=== PATIENT | female | born 1935 | race Caucasian/White ===

== ENCOUNTER 2020-12-19 15:36 | Inpatient (IN) | payer BC, OTHER ==
[2020-12-19] MEDS ORDERED: LACTATED RINGERS SOLUTION 1000 ML INFUS.BAG IV ONE (17:30)
[2020-12-19 17:47] VITALS: BMI 25.7
[2020-12-19] MEDS ORDERED: SODIUM CHLORIDE 0.9% 500 ML INFUS.BAG IV ONE (18:55)
[2020-12-19 19:07] LABS: BASO % 0.2 % (0-2.0); EOS % 0.4 % (0-4.5); HEMATOCRIT 36.6 % (32.4-45.2); HEMOGLOBIN 12.3 GM/dL (10.7-15.3); LYMPH % 12.9 % (8-40); MCH 28.5 pg (25.7-33.7); MCHC 33.5 g/dl (32.0-36.0); MEAN PLT VOLUME 8.3 fl (7.5-11.1); MONO % 4.3 % (3.8-10.2); NEUT % 82.2 % (42.8-82.8); PLATELET COUNT 281 K/MM3 (134-434); RDW 14.1 % (11.6-15.6); WHITE BLOOD COUNT 10.7 K/mm3 (4.0-10.0)
[2020-12-19 19:31] LABS: CHLORIDE 109 mmol/L (98-107); SODIUM 140 mmol/L (136-145)
[2020-12-19 19:32] LABS: CALCIUM 9.2 mg/dL (8.5-10.1)
[2020-12-19 19:33] LABS: ALBUMIN 3.8 g/dl (3.4-5.0); ANION GAP 7 MMOL/L (8-16); BLOOD UREA NITROGEN 33.3 mg/dL (7-18); CO2 24 mmol/L (21-32); GLUCOSE,RANDOM 131 mg/dL (74-106)
[2020-12-19 19:36] LABS: CREATININE 1.5 mg/dL (0.55-1.3); SGOT/AST 23 U/L (15-37); SGPT/ALT 24 U/L (13-61)
[2020-12-19 19:37] LABS: BILIRUBIN,TOTAL 0.3 mg/dL (0.2-1); TOT PROT 6.6 g/dl (6.4-8.2)
[2020-12-19 19:38] LABS: ALK PHOS 129 U/L (45-117)
[2020-12-20 01:19] LABS: URINE APPEARANCE CLEAR; URINE BILIRUBIN NEGATIVE (NEGATIVE); URINE COLOR YELLOW; URINE GLUCOSE (UA) NEGATIVE (NEGATIVE); URINE KETONE NEGATIVE (NEGATIVE); URINE LEUK ESTERASE NEGATIVE (NEGATIVE); URINE NITRITE NEGATIVE (NEGATIVE); URINE PROTEIN NEGATIVE (NEGATIVE); URINE UROBILINOGEN 0.2 mg/dL (0.2-1.0)
[2020-12-20] MEDS ORDERED: SODIUM CHLORIDE 1,000 ML IV SCH (02:45)
[2020-12-20] MEDS ORDERED: HEPARIN NA (PORCINE) 5,000 UNITS/ML 1ML VIAL ONE ×2 (05:52→14:08)
[2020-12-20] MEDS: HEPARIN NA (PORCINE) 5,000 UNITS/ML 1ML VIAL SQ SCH ×3 (05:53→22:50)
[2020-12-20 07:57] LABS: BASO % 0.3 % (0-2.0); EOS % 1.3 % (0-4.5); HEMATOCRIT 33.8 % (32.4-45.2); HEMOGLOBIN 11.5 GM/dL (10.7-15.3); LYMPH % 24.3 % (8-40); MCH 28.9 pg (25.7-33.7); MCHC 34.1 g/dl (32.0-36.0); MEAN CELL VOLUME 84.9 fl (80-96); MEAN PLT VOLUME 8.3 fl (7.5-11.1); MONO % 8.1 % (3.8-10.2); PLATELET COUNT 270 K/MM3 (134-434); RBC 3.98 M/mm3 (3.60-5.2); RDW 13.7 % (11.6-15.6); WHITE BLOOD COUNT 8.4 K/mm3 (4.0-10.0)
[2020-12-20 08:14] LABS: ALBUMIN 3.6 g/dl (3.4-5.0); CALCIUM 9.2 mg/dL (8.5-10.1)
[2020-12-20 08:15] LABS: BLOOD UREA NITROGEN 26.8 mg/dL (7-18)
[2020-12-20 08:16] LABS: MAGNESIUM 1.7 mg/dL (1.8-2.4)
[2020-12-20 08:17] LABS: CREATININE 1.2 mg/dL (0.55-1.3)
[2020-12-20 08:18] LABS: BILIRUBIN,TOTAL 0.4 mg/dL (0.2-1); TOT PROT 6.3 g/dl (6.4-8.2)
[2020-12-20] MEDS ORDERED: LISINOPRIL 5 MG TABLET PO ONE (14:45)
[2020-12-20] MEDS ORDERED: LISINOPRIL 5 MG TABLET ONE (18:07)
[2020-12-20] MEDS: TRIAMTERENE AND HCTZ - 37.5 MG/25 MG CAPSULE PO SCH (18:30)
[2020-12-21] MEDS: HEPARIN NA (PORCINE) 5,000 UNITS/ML 1ML VIAL SQ SCH ×3 (05:58→21:49)
[2020-12-21 08:10] LABS: BASO % 0.5 % (0-2.0); EOS % 0.5 % (0-4.5); HEMATOCRIT 35.6 % (32.4-45.2); HEMOGLOBIN 12.2 GM/dL (10.7-15.3); LYMPH % 14.6 % (8-40); MCH 29.2 pg (25.7-33.7); MCHC 34.2 g/dl (32.0-36.0); MEAN CELL VOLUME 85.2 fl (80-96); MEAN PLT VOLUME 8.2 fl (7.5-11.1); MONO % 5.9 % (3.8-10.2); NEUT % 78.5 % (42.8-82.8); PLATELET COUNT 262 K/MM3 (134-434); RBC 4.17 M/mm3 (3.60-5.2)
[2020-12-21 08:29] LABS: ALBUMIN 3.6 g/dl (3.4-5.0); BLOOD UREA NITROGEN 23.6 mg/dL (7-18); CALCIUM 9.4 mg/dL (8.5-10.1); MAGNESIUM 1.6 mg/dL (1.8-2.4)
[2020-12-21 08:31] LABS: CREATININE 1.2 mg/dL (0.55-1.3)
[2020-12-21 08:33] LABS: BILIRUBIN,TOTAL 0.6 mg/dL (0.2-1); TOT PROT 6.2 g/dl (6.4-8.2)
[2020-12-21] MEDS: LISINOPRIL 5 MG TABLET PO SCH (09:47)
[2020-12-21] MEDS: TRIAMTERENE AND HCTZ - 37.5 MG/25 MG CAPSULE PO SCH (11:22)
[2020-12-21] MEDS: MAGNESIUM OXIDE 400 MG TABLET (FP) PO SCH (21:49)
[2020-12-22] MEDS: HEPARIN NA (PORCINE) 5,000 UNITS/ML 1ML VIAL SQ SCH ×3 (06:39→21:23)
[2020-12-22 07:14] LABS: BASO % 0.4 % (0-2.0); EOS % 0.6 % (0-4.5); HEMATOCRIT 38.5 % (32.4-45.2); LYMPH % 24.6 % (8-40); MCH 29.1 pg (25.7-33.7); MCHC 33.7 g/dl (32.0-36.0); MEAN CELL VOLUME 86.4 fl (80-96); MEAN PLT VOLUME 7.9 fl (7.5-11.1); MONO % 7.1 % (3.8-10.2); NEUT % 67.3 % (42.8-82.8); PLATELET COUNT 293 K/MM3 (134-434); RBC 4.46 M/mm3 (3.60-5.2); RDW 14.2 % (11.6-15.6); WHITE BLOOD COUNT 11.9 K/mm3 (4.0-10.0)
[2020-12-22 07:27] LABS: CALCIUM 9.9 mg/dL (8.5-10.1)
[2020-12-22 07:29] LABS: ALBUMIN 3.8 g/dl (3.4-5.0); BLOOD UREA NITROGEN 31.6 mg/dL (7-18); MAGNESIUM 1.7 mg/dL (1.8-2.4)
[2020-12-22 07:32] LABS: CREATININE 1.5 mg/dL (0.55-1.3)
[2020-12-22 07:33] LABS: BILIRUBIN,TOTAL 0.7 mg/dL (0.2-1)
[2020-12-22 07:34] LABS: TOT PROT 6.7 g/dl (6.4-8.2)
[2020-12-22] MEDS: MAGNESIUM OXIDE 400 MG TABLET (FP) PO SCH ×2 (09:59→21:23)
[2020-12-22] MEDS: LISINOPRIL 5 MG TABLET PO SCH (09:59)
[2020-12-22] MEDS: TRIAMTERENE AND HCTZ - 37.5 MG/25 MG CAPSULE PO SCH (10:00)
[2020-12-22] MEDS: BACITRACIN 15 GM TUBE TOPICAL OINTMENT TP SCH (21:23)
[2020-12-22 23:25] LABS: EPI CELLS 7 /uL (0-25.1); HYALINE CASTS 1 /uL (0-3.1); URINE APPEARANCE CLEAR; URINE BACTERIA 189 /uL (0-1359); URINE BILIRUBIN NEGATIVE (NEGATIVE); URINE COLOR YELLOW; URINE GLUCOSE (UA) NEGATIVE (NEGATIVE); URINE KETONE NEGATIVE (NEGATIVE); URINE LEUK ESTERASE 2+ (NEGATIVE); URINE NITRITE NEGATIVE (NEGATIVE); URINE PROTEIN TRACE (NEGATIVE); URINE RBC 18 /uL (0-23.9); URINE UROBILINOGEN 0.2 mg/dL (0.2-1.0); URINE WBC 290 /uL (0-25.8)
[2020-12-23] MEDS: HEPARIN NA (PORCINE) 5,000 UNITS/ML 1ML VIAL SQ SCH ×3 (06:20→22:43)
[2020-12-23 07:44] LABS: BASO % 0.6 % (0-2.0); EOS % 3.3 % (0-4.5); HEMATOCRIT 36.2 % (32.4-45.2); HEMOGLOBIN 12.4 GM/dL (10.7-15.3); LYMPH % 22.5 % (8-40); MCH 29.1 pg (25.7-33.7); MCHC 34.2 g/dl (32.0-36.0); MEAN CELL VOLUME 84.9 fl (80-96); MEAN PLT VOLUME 8.5 fl (7.5-11.1); MONO % 7.9 % (3.8-10.2); NEUT % 65.7 % (42.8-82.8); PLATELET COUNT 266 K/MM3 (134-434); RBC 4.26 M/mm3 (3.60-5.2); WHITE BLOOD COUNT 8.7 K/mm3 (4.0-10.0)
[2020-12-23 08:09] LABS: ALBUMIN 3.3 g/dl (3.4-5.0); BLOOD UREA NITROGEN 31.9 mg/dL (7-18); MAGNESIUM 1.8 mg/dL (1.8-2.4)
[2020-12-23 08:10] LABS: CALCIUM 9.5 mg/dL (8.5-10.1)
[2020-12-23 08:11] LABS: CREATININE 1.2 mg/dL (0.55-1.3)
[2020-12-23 08:13] LABS: BILIRUBIN,TOTAL 0.6 mg/dL (0.2-1); TOT PROT 6.1 g/dl (6.4-8.2)
[2020-12-23] MEDS: LISINOPRIL 10 MG TABLET PO SCH (09:31)
[2020-12-23] MEDS: BACITRACIN 15 GM TUBE TOPICAL OINTMENT TP SCH (09:31)
[2020-12-23] MEDS: MAGNESIUM OXIDE 400 MG TABLET (FP) PO SCH ×2 (09:31→22:43)
[2020-12-23] MEDS ORDERED: cefTRIAXone SODIUM 1 GM VIAL ONE (16:39)
[2020-12-23] MEDS: CEFTRIAXONE 1 GM in DEXTROSE 5%-WATER - 50 ML IVPB SCH (16:47)
[2020-12-23] MEDS: NYSTATIN 100,000 UNIT/GM TOPICAL CREAM 15 GM TUBE TP SCH (22:44)
[2020-12-24] MEDS: HEPARIN NA (PORCINE) 5,000 UNITS/ML 1ML VIAL SQ SCH ×3 (06:20→22:31)
[2020-12-24 08:21] LABS: BASO % 0.6 % (0-2.0); EOS % 4.5 % (0-4.5); HEMATOCRIT 35.3 % (32.4-45.2); HEMOGLOBIN 11.9 GM/dL (10.7-15.3); LYMPH % 23.1 % (8-40); MCH 28.6 pg (25.7-33.7); MCHC 33.7 g/dl (32.0-36.0); MEAN PLT VOLUME 8.6 fl (7.5-11.1); MONO % 7.7 % (3.8-10.2); NEUT % 64.1 % (42.8-82.8); PLATELET COUNT 287 K/MM3 (134-434); RBC 4.15 M/mm3 (3.60-5.2); RDW 14.1 % (11.6-15.6); WHITE BLOOD COUNT 8.5 K/mm3 (4.0-10.0)
[2020-12-24 09:04] LABS: ALBUMIN 3.2 g/dl (3.4-5.0); BLOOD UREA NITROGEN 38.4 mg/dL (7-18); CALCIUM 9.9 mg/dL (8.5-10.1)
[2020-12-24 09:05] LABS: BILIRUBIN,TOTAL 0.6 mg/dL (0.2-1)
[2020-12-24 09:06] LABS: CREATININE 1.4 mg/dL (0.55-1.3)
[2020-12-24 09:11] LABS: TOT PROT 6.1 g/dl (6.4-8.2)
[2020-12-24] MEDS ORDERED: DEXTROSE 5%-WATER - 50 ML IVPB ONE (11:09)
[2020-12-24] MEDS ORDERED: cefTRIAXone SODIUM 1 GM VIAL ONE (11:09)
[2020-12-24] MEDS: NYSTATIN 100,000 UNIT/GM TOPICAL CREAM 15 GM TUBE TP SCH ×2 (11:17→22:32)
[2020-12-24] MEDS: BACITRACIN 15 GM TUBE TOPICAL OINTMENT TP SCH ×2 (11:17→22:31)
[2020-12-24] MEDS: MAGNESIUM OXIDE 400 MG TABLET (FP) PO SCH ×2 (11:17→22:31)
[2020-12-24] MEDS: LISINOPRIL 10 MG TABLET PO SCH (11:18)
[2020-12-24] MEDS: CEFTRIAXONE 1 GM in DEXTROSE 5%-WATER - 50 ML IVPB SCH (11:18)
[2020-12-25] MEDS: HEPARIN NA (PORCINE) 5,000 UNITS/ML 1ML VIAL SQ SCH ×3 (05:54→22:17)
[2020-12-25 07:32] LABS: BASO % 0.5 % (0-2.0); HEMATOCRIT 34.4 % (32.4-45.2); HEMOGLOBIN 11.7 GM/dL (10.7-15.3); LYMPH % 20.6 % (8-40); MCH 28.9 pg (25.7-33.7); MEAN PLT VOLUME 8.6 fl (7.5-11.1); MONO % 7.4 % (3.8-10.2); NEUT % 65.5 % (42.8-82.8); PLATELET COUNT 272 K/MM3 (134-434); RBC 4.05 M/mm3 (3.60-5.2); RDW 13.9 % (11.6-15.6); WHITE BLOOD COUNT 8.7 K/mm3 (4.0-10.0)
[2020-12-25 07:40] LABS: ALBUMIN 3.1 g/dl (3.4-5.0); BLOOD UREA NITROGEN 36.4 mg/dL (7-18); MAGNESIUM 1.9 mg/dL (1.8-2.4)
[2020-12-25 07:43] LABS: CREATININE 1.3 mg/dL (0.55-1.3)
[2020-12-25 07:45] LABS: BILIRUBIN,TOTAL 0.4 mg/dL (0.2-1); TOT PROT 6.1 g/dl (6.4-8.2)
[2020-12-25] MEDS: MAGNESIUM OXIDE 400 MG TABLET (FP) PO SCH ×2 (09:58→22:17)
[2020-12-25] MEDS: BACITRACIN 15 GM TUBE TOPICAL OINTMENT TP SCH ×2 (09:58→22:17)
[2020-12-25] MEDS: NYSTATIN 100,000 UNIT/GM TOPICAL CREAM 15 GM TUBE TP SCH ×2 (09:58→22:17)
[2020-12-25] MEDS: LISINOPRIL 10 MG TABLET PO SCH (09:58)
[2020-12-25] MEDS ORDERED: DEXTROSE 5%-WATER - 50 ML IVPB ONE (10:02)
[2020-12-25] MEDS ORDERED: cefTRIAXone SODIUM 1 GM VIAL ONE (10:02)
[2020-12-25] MEDS: CEFTRIAXONE 1 GM in DEXTROSE 5%-WATER - 50 ML IVPB SCH (10:03)
[2020-12-26] MEDS: HEPARIN NA (PORCINE) 5,000 UNITS/ML 1ML VIAL SQ SCH ×3 (05:48→22:12)
[2020-12-26 07:27] LABS: BASO % 0.4 % (0-2.0); EOS % 7.3 % (0-4.5); HEMATOCRIT 36.1 % (32.4-45.2); HEMOGLOBIN 11.9 GM/dL (10.7-15.3); LYMPH % 19.2 % (8-40); MCH 28.5 pg (25.7-33.7); MEAN CELL VOLUME 86.4 fl (80-96); MEAN PLT VOLUME 8.5 fl (7.5-11.1); MONO % 7.5 % (3.8-10.2); NEUT % 65.6 % (42.8-82.8); PLATELET COUNT 270 K/MM3 (134-434); RBC 4.18 M/mm3 (3.60-5.2); WHITE BLOOD COUNT 8.7 K/mm3 (4.0-10.0)
[2020-12-26 07:56] LABS: CALCIUM 9.3 mg/dL (8.5-10.1)
[2020-12-26 07:57] LABS: ALBUMIN 3.3 g/dl (3.4-5.0); BLOOD UREA NITROGEN 35.1 mg/dL (7-18)
[2020-12-26 08:00] LABS: CREATININE 1.3 mg/dL (0.55-1.3)
[2020-12-26 08:01] LABS: BILIRUBIN,TOTAL 0.5 mg/dL (0.2-1); TOT PROT 6.1 g/dl (6.4-8.2)
[2020-12-26] MEDS ORDERED: cefTRIAXone SODIUM 1 GM VIAL ONE (09:44)
[2020-12-26] MEDS ORDERED: DEXTROSE 5%-WATER - 50 ML IVPB ONE (09:44)
[2020-12-26] MEDS: CEFTRIAXONE 1 GM in DEXTROSE 5%-WATER - 50 ML IVPB SCH (09:52)
[2020-12-26] MEDS: NYSTATIN 100,000 UNIT/GM TOPICAL CREAM 15 GM TUBE TP SCH ×2 (09:53→22:13)
[2020-12-26] MEDS: risperiDONE 0.25 MG TABLET PO SCH (09:53)
[2020-12-26] MEDS: BACITRACIN 15 GM TUBE TOPICAL OINTMENT TP SCH ×2 (09:53→22:12)
[2020-12-26] MEDS: LISINOPRIL 10 MG TABLET PO SCH (09:53)
[2020-12-26] MEDS: MAGNESIUM OXIDE 400 MG TABLET (FP) PO SCH ×2 (09:53→22:12)
[2020-12-27 05:08] LABS: SARS-CoV-2 NAA Not Detected (Not Detected)
[2020-12-27] MEDS: HEPARIN NA (PORCINE) 5,000 UNITS/ML 1ML VIAL SQ SCH ×3 (05:53→22:10)
[2020-12-27 07:22] LABS: BASO % 0.6 % (0-2.0); EOS % 6.1 % (0-4.5); HEMOGLOBIN 11.8 GM/dL (10.7-15.3); LYMPH % 16.6 % (8-40); MCH 28.8 pg (25.7-33.7); MCHC 33.6 g/dl (32.0-36.0); MEAN CELL VOLUME 85.6 fl (80-96); MEAN PLT VOLUME 8.9 fl (7.5-11.1); MONO % 7.9 % (3.8-10.2); NEUT % 68.8 % (42.8-82.8); PLATELET COUNT 275 K/MM3 (134-434); RDW 14.1 % (11.6-15.6); WHITE BLOOD COUNT 8.6 K/mm3 (4.0-10.0)
[2020-12-27 07:45] LABS: ALBUMIN 3.1 g/dl (3.4-5.0); BLOOD UREA NITROGEN 40.9 mg/dL (7-18); CALCIUM 9.2 mg/dL (8.5-10.1); MAGNESIUM 2.1 mg/dL (1.8-2.4)
[2020-12-27 07:47] LABS: CREATININE 1.4 mg/dL (0.55-1.3)
[2020-12-27 07:49] LABS: BILIRUBIN,TOTAL 0.5 mg/dL (0.2-1); TOT PROT 5.9 g/dl (6.4-8.2)
[2020-12-27] MEDS ORDERED: DEXTROSE 5%-WATER - 50 ML IVPB ONE (08:58)
[2020-12-27] MEDS ORDERED: cefTRIAXone SODIUM 1 GM VIAL ONE (08:58)
[2020-12-27] MEDS: NYSTATIN 100,000 UNIT/GM TOPICAL CREAM 15 GM TUBE TP SCH ×2 (09:31→22:11)
[2020-12-27] MEDS: BACITRACIN 15 GM TUBE TOPICAL OINTMENT TP SCH ×2 (09:31→22:10)
[2020-12-27] MEDS: CEFTRIAXONE 1 GM in DEXTROSE 5%-WATER - 50 ML IVPB SCH (09:31)
[2020-12-27] MEDS: risperiDONE 0.25 MG TABLET PO SCH (09:31)
[2020-12-27] MEDS: LISINOPRIL 10 MG TABLET PO SCH (09:31)
[2020-12-27] MEDS: MAGNESIUM OXIDE 400 MG TABLET (FP) PO SCH ×2 (09:31→22:10)
[2020-12-27] MEDS ORDERED: diphenhydrAMINE HCL 25 MG CAPSULE (FP) PO ONE (22:26)
[2020-12-28] MEDS: HEPARIN NA (PORCINE) 5,000 UNITS/ML 1ML VIAL SQ SCH ×2 (06:21→14:08)
[2020-12-28 07:35] LABS: BASO % 0.5 % (0-2.0); EOS % 6.4 % (0-4.5); HEMATOCRIT 35.2 % (32.4-45.2); HEMOGLOBIN 11.7 GM/dL (10.7-15.3); LYMPH % 17.2 % (8-40); MCH 28.7 pg (25.7-33.7); MCHC 33.2 g/dl (32.0-36.0); MEAN CELL VOLUME 86.4 fl (80-96); MEAN PLT VOLUME 8.9 fl (7.5-11.1); MONO % 8.1 % (3.8-10.2); NEUT % 67.8 % (42.8-82.8); PLATELET COUNT 297 K/MM3 (134-434); RBC 4.08 M/mm3 (3.60-5.2); RDW 14.2 % (11.6-15.6); WHITE BLOOD COUNT 8.5 K/mm3 (4.0-10.0)
[2020-12-28 08:13] LABS: ALBUMIN 3.2 g/dl (3.4-5.0); CALCIUM 9.3 mg/dL (8.5-10.1)
[2020-12-28 08:14] LABS: BLOOD UREA NITROGEN 39.4 mg/dL (7-18); MAGNESIUM 2.1 mg/dL (1.8-2.4)
[2020-12-28 08:17] LABS: CREATININE 1.3 mg/dL (0.55-1.3)
[2020-12-28 08:18] LABS: BILIRUBIN,TOTAL 0.5 mg/dL (0.2-1); TOT PROT 5.9 g/dl (6.4-8.2)
[2020-12-28] MEDS ORDERED: cefTRIAXone SODIUM 1 GM VIAL ONE (09:48)
[2020-12-28] MEDS ORDERED: DEXTROSE 5%-WATER - 50 ML IVPB ONE (09:48)
[2020-12-28] MEDS ORDERED: PT OWN MED DRAWER 7, Y5N ONE (09:49)
[2020-12-28] MEDS: BACITRACIN 15 GM TUBE TOPICAL OINTMENT TP SCH (10:01)
[2020-12-28] MEDS: CEFTRIAXONE 1 GM in DEXTROSE 5%-WATER - 50 ML IVPB SCH (10:01)
[2020-12-28] MEDS: MAGNESIUM OXIDE 400 MG TABLET (FP) PO SCH (10:01)
[2020-12-28] MEDS: LISINOPRIL 10 MG TABLET PO SCH (10:01)
[2020-12-28] MEDS: risperiDONE 0.25 MG TABLET PO SCH (10:01)
[2020-12-28] MEDS: NYSTATIN 100,000 UNIT/GM TOPICAL CREAM 15 GM TUBE TP SCH (10:02)
[2020-12-28 18:51] VITALS: BP 136/71; PULSE 74; TEMP 98.8
== END 2020-12-28 20:43 | DRG 689 ==
LOC: JER 15:36 → JERBED 23:23 → OBSVTOIN 12-20 02:35 → J4W 12-20 22:46
PROVIDERS: ADMIT Hospitalist; ATTEND Nurse Practitioner Family
PROC: 0HQ0XZZ Repair Scalp Skin, External Approach (ICD-10-PCS; principal; 2020-12-19)
DX: N39.0 Urinary tract infection, site not specified (principal); G93.41 Metabolic encephalopathy; N17.9 Acute kidney failure, unspecified; R55 Syncope and collapse; I10 Essential (primary) hypertension; R91.1 Solitary pulmonary nodule; E83.42 Hypomagnesemia; J45.20 Mild intermittent asthma, uncomplicated; E27.9 Disorder of adrenal gland, unspecified; E01.0 Iodine-deficiency related diffuse (endemic) goiter; K80.20 Calculus of gallbladder without cholecystitis without obstruction; E86.0 Dehydration; R44.1 Visual hallucinations; S01.01XA Laceration without foreign body of scalp, initial encounter; W19.XXXA Unspecified fall, initial encounter; Y93.89 Activity, other specified; Y92.008 Other place in unspecified non-institutional (private) residence as the place of occurrence of the external cause; Y99.8 Other external cause status; Z20.822 Contact with and (suspected) exposure to COVID-19; B95.1 Streptococcus, group B, as the cause of diseases classified elsewhere
CPT/HCPCS: 36415; 70450-TC; 71275-TC; 72125-TC; 80053; 81003; 82550; 82607; 82962; 83735; 84100; 84439; 84443; 84484; 85025; 85379; 85651; 86780; 87077; 87086; 87186; 93005; 93010; 93306-TC; 93880-TC; 93970-TC; 97116-GP; 97162-GP; 99285-25; C9803; G0378; J1644; U0003; U0005

== ENCOUNTER 2021-01-23 09:41 | Day surgery (SDC) | payer OTHER ==
[2021-01-23 13:24] VITALS: BP 118/62; PULSE 76; TEMP 98
== END 2021-01-23 13:25 | disposition home or self-care (01) ==
LOC: JINFUSION 09:41 → EDSTATUS 12:00 → JINFUSION 13:25
PROVIDERS: ATTEND Internal Medicine
PROC: 3E0337Z Introduction of Electrolytic and Water Balance Substance into Peripheral Vein, Percutaneous Approach (ICD-10-PCS; principal; 2021-01-23)
DX: K62.5 Hemorrhage of anus and rectum (principal)
CPT/HCPCS: 74174-TC; 96360; 96361; Q9967